=== PATIENT | male | born 1975 | race Caucasian/White ===

== ENCOUNTER 2024-10-16 10:11 | Emergency (ER) | payer SELFPAY ==
[2024-10-16 10:31] VITALS: BP 138/91; PULSE 73; TEMP 36.6; O2SAT 99; BMI 25.8
--- NOTE | 2024-10-16 11:24 | CT_ITS ---
The [address] [address] Patient Name: ELENITA PATEL MRN: [id number] date: 1975 Sex: M Assigned Patient Location: ER Current Patient Location: ER Accession/Order Number: [id number] Exam Date: 10/16/2024 11:37 Report Date: 10/16/2024 12:06 At the request of: VITALIY KIRAN DO Procedure: CT abdomen pelvis w con CT ABDOMEN AND PELVIS WITH INTRAVENOUS CONTRAST: CLINICAL HISTORY: lower abdominal pain COMPARISON: None TECHNIQUE: Spiral images were obtained through the abdomen and pelvis following the administration of intravenous contrast. This CT exam was performed using one or more following dose reduction techniques: Automated exposure control, adjustment of the mA and/or kV according to patient size, or use of iterative reconstruction technique. FINDINGS: Hypoventilatory changes within the lung bases. Liver, gallbladder, spleen, adrenals, kidneys, pancreas unremarkable. [id number] retained stool throughout the colon. No evidence of bowel obstruction. Appendix unremarkable. Evidence of colonic diverticulosis involving sigmoid colon. Pericolonic inflammatory changes involving the proximal sigmoid colon consistent with acute uncomplicated sigmoid colonic diverticulitis. [id number] focal wall thickening No free air. No free fluid. No pathologic adenopathy. Bladder prostate unremarkable. Aorta normal caliber. No suspicious osseous lesion. CT/CT abdomen pelvis w con IMPRESSION: Acute uncomplicated sigmoid colonic diverticulitis. Recommend clinical or CT follow-up to document resolution of the mural thickening. Impression dictated by: Jairo Beth M.D. 10/16/2024 12:06 PM Dictation Location: [place] [address] Electronically authenticated by: [id number] Y Date: 10/16/2024 12:06
[2024-10-16 11:35] LABS: Hematocrit 41.4 % (42.0-54.0); Hemoglobin 13.8 g/dL (14.0-18.0); Immature Granulocytes Abs Auto 0.03 10^3/uL (0.00-0.03); Immature Granulocytes Pct Auto 0.3 % (0.0-0.5); Lymphocytes Absolute Auto 2.6 10^3/uL (1.2-3.8); Mean Corpuscular HGB Conc 33.3 g/dL (29.9-35.2); Mean Corpuscular Hemoglobin 31.4 pg (25.9-34.0); Mean Corpuscular Volume 94.1 fL (80.0-94.0); Platelet Count 262 10^3/uL (150-450); Red Blood Count 4.40 10^6/uL (4.70-6.10); White Blood Count 11.0 10^3/uL (4.0-11.0)
[2024-10-16 11:42] LABS: Alanine Aminotransferase 23 U/L (16-63); Albumin Globulin Ratio 1.1; Albumin Level 4.0 g/dL (3.4-5.0); Alkaline Phosphatase 111 U/L (46-116); Anion Gap 14.7; Aspartate Amino Transferase 16 U/L (15-37); Blood Urea Nitrogen 17.0 mg/dL (7.0-18.0); Calcium 9.3 mg/dL (8.5-10.1); Carbon Dioxide 26.1 mmol/L (21.0-32.0); Chloride 106 mmol/L (98-107); Estimated GFR (African America >60 (>=60 mL/min/1.73m^2); Estimated GFR (Non-African Ame >60 (>=60 mL/min/1.73m^2); Globulin 3.8 g/dL; Glucose 99 mg/dL (74-106); Lipase 39.0 U/L (16.0-77.0); Magnesium 2.0 mg/dL (1.8-2.4); Potassium 3.8 mmol/L (3.5-5.1); Sodium 143 mmol/L (136-145); Total Protein 7.8 g/dL (6.4-8.2)
[2024-10-16 11:45] LABS: Lactate/Lactic Acid 0.4 mmol/L (0.4-2.0)
[2024-10-16] MEDS: MORPHINE SULFATE 4 MG/ML VIAL IV (11:49)
[2024-10-16] MEDS: 0.9 % SODIUM CHLORIDE 1,000 ML 1000 ML IV (11:49)
--- NOTE | 2024-10-16 12:34 | ED.GENADUL1 ---
HPI HPI - General Adult General Chief complaint: Abdominal Pain Stated complaint: ABDOMINAL PAIN Time Seen by Provider: 10/16/24 11:19 Source: patient Mode of arrival: walk-in Limitations: no limitations History of Present Illness HPI narrative: Patient is a 48-year-old male, history significant for prior diverticulitis, presenting to the emergency department with a 2-day history of lower abdominal pain. Patient states he feels a pressure sensation in his lower abdomen and worsening pain. He states this feels similar to prior episodes of diverticulitis. He denies any associated dysuria or hematuria. States he is nauseous, but no vomiting, constipation, or diarrhea. No hematochezia or melena. Still tolerating p.o. Denies fevers or chills. No chest pain or shortness of breath. Related Data Previous Rx's ?Medication ?Instructions ?Recorded ciprofloxacin HCl 500 mg tablet 500 mg PO Q12H diverticulitis 7 10/16/24 (Cipro) days #14 tabs metronidazole 500 mg tablet 500 mg PO Q8H 7 days #21 tabs 10/16/24 Allergies Allergy/AdvReac Type Severity Reaction Status Date / Time No Known Drug Allergies Allergy Verified 10/16/24 10:30 Opioid HPI Opioid Management Most Recent Opioid Data: Last Pain Scale 9 Today, 10:31 Review of Systems ROS Status of ROS 10 or more systems reviewed and unremarkable except as noted in history and below PFSH PFSH Social History Little interest or pleasure in doing things: not at all Feeling down, depressed, or hopeless: not at all Exam Narrative Exam Narrative: CONSTITUTIONAL: appears mildly uncomfortabe, non-toxic, answering questions and following commands appropriately SKIN: Was warm and dry. EYES: No conjunctival pallor or scleral icterus. EARS, NOSE, THROAT: Moist oral mucosa. RESPIRATORY: Clear to auscultation bilaterally, no wheezes, crackles, or stridor, no use of accessory muscles CARDIOVASCULAR: Normal rate and regular rhythm. There is no S3, S4, murmur, rub GASTROINTESTINAL: Tenderness to palpation throughout the lower abdomen. No rebound tenderness. No guarding. MUSCULOSKELETAL: No peripheral edema NEUROLOGIC: Patient is awake and alert. Facies were symmetrical. Constitutional Vital Signs, click to edit/add: Last Vital Signs Temp 97.9 F 10/16/24 10:31 Pulse 73 10/16/24 10:31 Resp 18 10/16/24 10:31 BP 138/91 10/16/24 10:31 Pulse Ox 99 10/16/24 10:31 O2 Del Method Room Air 10/16/24 10:31 Course Vital Signs Vital signs: Vital Signs Temperature 97.9 F 10/16/24 10:31 Pulse Rate 73 10/16/24 10:31 Respiratory Rate 18 10/16/24 10:31 Blood Pressure 138/91 10/16/24 10:31 Pulse Oximetry 99 10/16/24 10:31 Oxygen Delivery Method Room Air 10/16/24 10:31 Temperature 97.9 F 10/16/24 10:31 Pulse Rate 73 10/16/24 10:31 Respiratory Rate 18 10/16/24 10:31 Blood Pressure 138/91 10/16/24 10:31 Pulse Oximetry 99 10/16/24 10:31 Oxygen Delivery Method Room Air 10/16/24 10:31 Medical Decision Making MDM Narrative Medical decision making narrative: Patient is a 48-year-old male presenting to the emergency department for 2-day history of lower abdominal pain and nausea. Vital signs arrival are within normal limits. He is afebrile and hemodynamically stable. Patient has tenderness to palpation about the lower part of his abdomen without rebound tenderness guarding, or peritoneal signs. Clinically, the patient likely has diverticulitis given his prior known history of diverticulosis. Other potential etiologies include colitis, microperforations, or intra-abdominal abscess. IV was established and laboratory studies were obtained. He was given a liter bolus normal saline, IV Zofran, IV morphine for symptomatic treatment. Laboratory studies were unremarkable. No significant electrolyte or metabolic derangement. No evidence of acute kidney injury. No anemia, leukocytosis, or thrombocytopenia. No transaminitis or hyperbilirubinemia. Lipase not elevated. CT abdomen/pelvis independently reviewed/interpreted by myself and reviewed by radiology demonstrated uncomplicated sigmoid colonic diverticulitis. I do believe the patient is stable for discharge at this time. Patient's presentation is most likely consistent with uncomplicated diverticulitis. Patient shows no signs of sepsis and is tolerating p.o. I think he would be amenable to outpatient antibiotic therapy. He was given a prescription for Cipro 500 mg twice daily and Flagyl 500 mg 3 times daily x 7 days. They were instructed to follow up with their PCP in the next 5 days for further care. Return precautions were given including any new or worsening symptoms, including persistent fevers, intractable vomiting, or worsening abdominal pain. Patient understands and agrees to the plan. FINAL IMPRESSION: Acute uncomplicated sigmoid diverticulitis DISPOSITION: Home CONDITION: Fair Medical Records Medical records reviewed: Yes I reviewed the patient's medical records Lab Data Lab results reviewed: Yes I reviewed the patient's lab results Labs: Lab Results 10/16/24 Range/Units 11:11 WBC 11.0 (4.0-11.0) 10^3/uL RBC 4.40 L (4.70-6.10) 10^6/uL Hgb 13.8 L (14.0-18.0) g/dL Hct 41.4 L (42.0-54.0) % MCV 94.1 H (80.0-94.0) fL MCH 31.4 (25.9-34.0) pg MCHC 33.3 (29.9-35.2) g/dL RDW 13.6 (11.0-15.0) % Plt Count 262 (150-450) 10^3/uL MPV 9.3 L (9.5-13.5) fL Neut % (Auto) 68.7 (43.0-75.0) % Lymph % (Auto) 23.5 (20.5-60.0) % [place] % (Auto) 7.1 (1.7-12.0) % Eos % (Auto) 0.2 L (0.9-7.0) % Baso % (Auto) 0.2 (0.2-2.0) % Neut # (Auto) 7.6 H (1.4-6.5) 10^3/uL Lymph # (Auto) 2.6 (1.2-3.8) 10^3/uL [place] # (Auto) 0.8 (0.3-0.8) 10^3/uL Eos # (Auto) 0.0 (0.0-0.7) 10^3/uL Baso # (Auto) 0.0 (0.0-0.1) 10^3/uL Abs Immat Gran (auto) 0.03 (0.00-0.03) 10^3/uL Imm/Tot Granulo (auto) 0.3 (0.0-0.5) % Sodium 143 (136-145) mmol/L Potassium 3.8 (3.5-5.1) mmol/L Chloride 106 (98-107) mmol/L Carbon Dioxide 26.1 (21.0-32.0) mmol/L Anion Gap 14.7 BUN 17.0 (7.0-18.0) mg/dL Creatinine 0.83 (0.70-1.30) mg/dL Est GFR ( Amer) >60 (>=60 mL/min/1.73m^2) Est GFR (Non-Af Amer) >60 (>=60 mL/min/1.73m^2) BUN/Creatinine Ratio 20.5 Glucose 99 (74-106) mg/dL Lactate 0.4 (0.4-2.0) mmol/L Calcium 9.3 (8.5-10.1) mg/dL Magnesium 2.0 (1.8-2.4) mg/dL Total Bilirubin 0.7 (0.2-1.0) mg/dL AST 16 (15-37) U/L ALT 23 (16-63) U/L Alkaline Phosphatase 111 (46-116) U/L Total Protein 7.8 (6.4-8.2) g/dL Albumin 4.0 (3.4-5.0) g/dL Globulin 3.8 g/dL Albumin/Globulin Ratio 1.1 Lipase 39.0 (16.0-77.0) U/L Imaging Data CT scan - abdomen: Attestation: I personally reviewed and interpreted this imaging study as follows: Radiologist's impression: ITS Impressions Abdomen/Pelvis CT 10/16/24 11:24 IMPRESSION: Acute uncomplicated sigmoid colonic diverticulitis. Recommend clinical or CT follow-up to document resolution of the mural thickening. Impression dictated by: Jairo Beth M.D. 10/16/2024 12:06 PM Dictation Location: [place] [address] Electronically authenticated by: [id number] Y Date: 10/16/2024 12:06 Discharge Plan Discharge Chief Complaint: Abdominal Pain Clinical Impression: Diverticulitis Patient Disposition: Home, Self-Care Time of Disposition Decision: 12:24 Condition: Fair Mode of Transportation: Private Vehicle Prescriptions / Home Meds: New ciprofloxacin HCl [Cipro] 500 mg tablet 500 mg PO Q12H 7 Days Qty: 14 0RF metronidazole 500 mg tablet 500 mg PO Q8H 7 Days Qty: 21 0RF Print Language: [place] Instructions: Diverticulitis (ED) Referrals: Physician,Non-Staff, MD [Primary Care Provider] - 1 week Discharge Date/Time: 10/16/24 12:34
== END 2024-10-16 12:34 | disposition home or self-care (01) ==
PROVIDERS: Emergency Provider Student in an Organized Health Care Education/Training Program
DX: K57.32 Diverticulitis of large intestine without perforation or abscess without bleeding (principal)
CPT/HCPCS: 36415; 74177; 80053; 81001; 83605; 83690; 83735; 85025; 96374; 96375; 99284; J2270; J2405; Q9967